=== PATIENT | male | born 1940 | race Two or more races ===

== ENCOUNTER 2018-06-22 01:15 | Inpatient (IN) | payer OTHER, MEDICARE, MEDICAID ==
[~2018-06-22] VITALS: Ht 185.4 cm; Wt 130.2 kg
[2018-06-22 03:35] LABS: CLARITY URINE CLEAR (CLEAR); COLOR URINE YELLOW (YELLOW); KETONES URINE NEGATIVE (NEGATIVE); LEUKOCYTE ESTERASE URINE NEGATIVE (NEGATIVE); NITRITE URINE NEGATIVE (NEGATIVE); OCCULT BLOOD URINE 1+ (NEGATIVE); PROTEIN URINE 3+ (NEGATIVE); SPECIFIC GRAVITY URINE 1.012 (1.005-1.030); UROBILINOGEN URINE 0.2 E.U./dL (0.2-1.0)
[2018-06-22 03:51] LABS: BASOPHILS % 0.4 % (0.0-2.0); EOSINOPHILS % 1.6 % (0.0-5.0); HEMATOCRIT. 36.8 % (42.0-52.0); HEMOGLOBIN. 12.2 g/dL (14.0-18.0); LYMPHOCYTES % 13.6 % (20.0-50.0); MEAN CORPUSCULAR HEMOGLOBIN 29.3 pg (28.0-32.0); MEAN CORPUSCULAR VOLUME 88.6 fL (80.0-94.0); MEAN PLATELET VOLUME 7.2 fl (7.4-10.4); MONOCYTES % 6.1 % (2.0-8.0); NEUTROPHILS % 78.3 % (40.0-76.0); PLATELET 201 x1000/uL (130-400); RED BLOOD CELL COUNT 4.15 mill/uL (4.7-6.1); RED CELL DISTRIBUTION WIDTH 14.5 % (11.6-14.6)
[2018-06-22 03:57] LABS: PROTHROMBIN TIME 10.5 sec (9.1-11.1)
[2018-06-22 04:02] LABS: CHLORIDE 116 mEq/L (98-107)
[2018-06-22] MEDS ORDERED: ACETAMINOPHEN 325MG TABLET PO PRN ×2 (05:00→16:00)
[2018-06-22] MEDS ORDERED: CLONIDINE 0.1MG TABLET PO NR (12:23)
[2018-06-22] MEDS ORDERED: LOSARTAN POTASSIUM 100 MG TABLET PO SCH (12:30)
[2018-06-22] MEDS: CLONIDINE 0.1MG TABLET PO SCH ×2 (14:00→22:58)
[2018-06-22 14:30] VITALS: BP 210/128
[2018-06-22] MEDS: VERAPAMIL HCL 120MG TABLET PO SCH ×2 (15:09→22:13)
[2018-06-22] MEDS ORDERED: LACTULOSE 20G/30ML UDC PO PRN (16:00)
[2018-06-22] MEDS ORDERED: LORAZEPAM 1MG TABLET PO PRN (16:00)
[2018-06-22] MEDS ORDERED: TRAMADOL 50MG TABLET PO PRN (16:19)
[2018-06-22 17:53] VITALS: BP 170/86
[2018-06-22 20:00] VITALS: BP 129/70
[2018-06-22] MEDS: CALCIUM ACETATE 667MG CAPSULE PO SCH (20:56)
[2018-06-22 22:12] VITALS: BP 139/71
[2018-06-23] VITALS (16 sets, daily range): BP systolic 120–176; BP diastolic 69–97
[2018-06-23] MEDS: CLONIDINE 0.1MG TABLET PO SCH ×3 (05:51→23:47)
[2018-06-23] MEDS: VERAPAMIL HCL 120MG TABLET PO SCH ×3 (05:52→23:47)
[2018-06-23 07:11] LABS: BASOPHILS % 0.3 % (0.0-2.0); EOSINOPHILS % 2.2 % (0.0-5.0); HEMATOCRIT. 33.3 % (42.0-52.0); LYMPHOCYTES % 14.4 % (20.0-50.0); MEAN CORPUSCULAR HEMOGLOBIN 29.4 pg (28.0-32.0); MEAN CORPUSCULAR VOLUME 88.9 fL (80.0-94.0); MEAN PLATELET VOLUME 7.3 fl (7.4-10.4); MONOCYTES % 7.5 % (2.0-8.0); NEUTROPHILS % 75.6 % (40.0-76.0); PLATELET 166 x1000/uL (130-400); RED BLOOD CELL COUNT 3.75 mill/uL (4.7-6.1); RED CELL DISTRIBUTION WIDTH 14.1 % (11.6-14.6)
[2018-06-23] MEDS ORDERED: CEFAZOLIN 1000MG PREMIX 50 ML IV ONE ×2 (07:15→07:23)
[2018-06-23] MEDS ORDERED: LIDOCAINE HCL 1% 20ML VIAL (Pyxis) INJ ONE (07:24)
[2018-06-23] MEDS ORDERED: SODIUM BICARBONATE 4% (2.4MEQ) 5ML VIAL IV ONE (07:24)
[2018-06-23 07:55] LABS: HEPATITIS B SURFACE AB 277.5 mIU/mL
[2018-06-23 08:06] LABS: HEPATITIS B SURFACE ANTIGEN NEGATIVE
[2018-06-23] MEDS: CALCIUM ACETATE 667MG CAPSULE PO SCH ×3 (08:10→18:13)
[2018-06-23] MEDS: CALCITRIOL 0.25MCG CAPSULE PO SCH (09:00)
[2018-06-23] MEDS: DOCUSATE SODIUM 100MG CAPSULE PO SCH (09:00)
[2018-06-23] MEDS: FOLIC ACID/VITAMIN B COMP W-C TABLET PO SCH (09:00)
[2018-06-23 09:27] LABS: PHOSPHORUS 3.7 mg/dL (2.5-4.9)
[2018-06-23] MEDS ORDERED: FENTANYL CITRATE/PF 50MCG/ML 2ML VIAL ONE (10:12)
[2018-06-23] MEDS ORDERED: FENTANYL CITRATE/PF 50MCG/ML 2ML VIAL IV ONE (10:45)
[2018-06-23] MEDS ORDERED: MANNITOL 12.5G (25%) VIAL 50ML IV NR (12:00)
[2018-06-24] VITALS (7 sets, daily range): BP systolic 149–167; BP diastolic 80–95
[2018-06-24] MEDS: VERAPAMIL HCL 120MG TABLET PO SCH ×2 (05:37→13:58)
[2018-06-24] MEDS: CLONIDINE 0.1MG TABLET PO SCH ×3 (05:37→19:51)
[2018-06-24] MEDS ORDERED: FURO40TA5 PO (06:15)
[2018-06-24] MEDS ORDERED: METO-411 PO (06:15)
[2018-06-24] MEDS ORDERED: TERA1CAP7 PO (06:15)
[2018-06-24] MEDS ORDERED: FOLI-43 PO (06:15)
[2018-06-24] MEDS ORDERED: AMLO10TA80 PO (06:15)
[2018-06-24] MEDS ORDERED: ALLO100T PO (06:15)
[2018-06-24] MEDS ORDERED: TAMS0.4C31 PO (06:15)
[2018-06-24] MEDS ORDERED: LOSA100T14 PO (06:15)
[2018-06-24] MEDS: MANNITOL 12.5G (25%) VIAL 50ML IV NR ×2 (07:00→11:37)
[2018-06-24 07:31] LABS: BASOPHILS % 0.2 % (0.0-2.0); HEMATOCRIT. 34.1 % (42.0-52.0); HEMOGLOBIN. 11.4 g/dL (14.0-18.0); LYMPHOCYTES % 11.7 % (20.0-50.0); MEAN CORPUSCULAR HEMOGLOBIN 29.6 pg (28.0-32.0); MEAN CORPUSCULAR VOLUME 88.5 fL (80.0-94.0); MEAN PLATELET VOLUME 7.1 fl (7.4-10.4); MONOCYTES % 7.1 % (2.0-8.0); PLATELET 171 x1000/uL (130-400); RED BLOOD CELL COUNT 3.86 mill/uL (4.7-6.1)
[2018-06-24] MEDS: CALCIUM ACETATE 667MG CAPSULE PO SCH ×3 (08:16→18:27)
[2018-06-24] MEDS: FOLIC ACID/VITAMIN B COMP W-C TABLET PO SCH (09:12)
[2018-06-24] MEDS: DOCUSATE SODIUM 100MG CAPSULE PO SCH (09:12)
[2018-06-24] MEDS: CALCITRIOL 0.25MCG CAPSULE PO SCH (09:12)
[2018-06-24] MEDS ORDERED: HEPARIN SODIUM 1,000 UNIT/1ML VIAL IV NR (11:45)
== END 2018-06-24 21:26 | disposition home or self-care (01) | DRG 673 ==
LOC: ER 01:15 → 7WST 04:59 → ENRESERV 10:17
PROVIDERS: ADMIT Internal Medicine; ATTEND Internal Medicine
PROC: B5181ZA Fluoroscopy of Superior Vena Cava using Low Osmolar Contrast, Guidance (ICD-10-PCS; principal; 2018-06-23)
PROC: 02HV33Z Insertion of Infusion Device into Superior Vena Cava, Percutaneous Approach (ICD-10-PCS; 2018-06-23)
PROC: B548ZZA Ultrasonography of Superior Vena Cava, Guidance (ICD-10-PCS; 2018-06-23)
PROC: 5A1D70Z Performance of Urinary Filtration, Intermittent, Less than 6 Hours Per Day (ICD-10-PCS; 2018-06-23)
PROC: 0JH63XZ Insertion of Tunneled Vascular Access Device into Chest Subcutaneous Tissue and Fascia, Percutaneous Approach (ICD-10-PCS; 2018-06-23)
DX: I12.0 Hypertensive chronic kidney disease with stage 5 chronic kidney disease or end stage renal disease (principal); N18.6 End stage renal disease; E87.2 Acidosis; N17.9 Acute kidney failure, unspecified; E46 Unspecified protein-calorie malnutrition; D64.9 Anemia, unspecified; E78.00 Pure hypercholesterolemia, unspecified; E66.01 Morbid (severe) obesity due to excess calories; L29.9 Pruritus, unspecified; N40.0 Benign prostatic hyperplasia without lower urinary tract symptoms; M17.0 Bilateral primary osteoarthritis of knee; N13.9 Obstructive and reflux uropathy, unspecified; Z96.659 Presence of unspecified artificial knee joint; Z68.37 Body mass index [BMI] 37.0-37.9, adult; Z79.899 Other long term (current) drug therapy
CPT/HCPCS: 36415; 36558; 71045; 76770; 76937; 77001; 80048; 82306; 83735; 83970; 84100; 84484; 86705; 86706; 86803; 87340; 87804; 93005; 99152; 99153; 99285; C1750; C1769; J0690; J1642; J1644; J2150; J3010; J3490; J7050; G0500

== ENCOUNTER 2020-09-25 16:00 | Inpatient (IN) | payer MEDICARE, MEDICAID ==
[~2020-09-25] VITALS: Ht 185.4 cm; Wt 119.3 kg
[~2020-09-25 16:00] MED LIST: ALLO100T PO; AMLO10TA80 PO; FOLI-43 PO; FURO40TA5 PO; LOSA100T32 PO; METO-411 PO; TAMS0.4C31 PO
[2020-09-25] MEDS ORDERED: SODIUM CHLORIDE 0.9% 1,000 ML IV ONE (16:45)
[2020-09-25 17:06] LABS: BASOPHILS % 0.3 % (0.0-2.0); EOSINOPHILS % 1.4 % (0.0-5.0); HEMOGLOBIN. 11.5 g/dL (14.0-18.0); LYMPHOCYTES % 14.2 % (20.0-50.0); MEAN CORPUSCULAR HEMOGLOBIN 30.7 pg (28.0-32.0); MEAN CORPUSCULAR VOLUME 90.4 fL (80.0-94.0); MEAN PLATELET VOLUME 6.6 fl (7.4-10.4); MONOCYTES % 7.6 % (2.0-8.0); NEUTROPHILS % 76.5 % (40.0-76.0); PLATELET 190 x1000/uL (130-400); RED BLOOD CELL COUNT 3.75 mill/uL (4.7-6.1); RED CELL DISTRIBUTION WIDTH 13.4 % (11.6-14.6)
[2020-09-25 17:11] LABS: CHLORIDE 104 mEq/L (98-107)
[2020-09-25 17:15] LABS: INR 1.1; PROTHROMBIN TIME 11.3 sec (9.6-11.0)
[2020-09-25] MEDS ORDERED: ASPIRIN 325MG EC TABLET PO ONE (18:15)
[2020-09-25 22:15] VITALS: BP 128/81
[2020-09-26] VITALS: BP 112/77
[2020-09-26] MEDS ORDERED: HYDROCODONE/ACETAMINOPHEN 5/325MG TABLET PO PRN (01:15)
[2020-09-26] MEDS ORDERED: ACETAMINOPHEN 325MG TABLET PO PRN (01:15)
[2020-09-26] MEDS ORDERED: TEMAZEPAM 15MG CAPSULE PO PRN (02:30)
[2020-09-26 04:00] VITALS: BP 96/69
[2020-09-26 07:03] LABS: BASOPHILS % 0.2 % (0.0-2.0); EOSINOPHILS % 1.6 % (0.0-5.0); HEMATOCRIT. 32.9 % (42.0-52.0); HEMOGLOBIN. 11.1 g/dL (14.0-18.0); MEAN CORPUSCULAR HEMOGLOBIN 30.6 pg (28.0-32.0); MEAN CORPUSCULAR VOLUME 90.9 fL (80.0-94.0); MEAN PLATELET VOLUME 7.1 fl (7.4-10.4); MONOCYTES % 7.4 % (2.0-8.0); NEUTROPHILS % 70.8 % (40.0-76.0); PLATELET 173 x1000/uL (130-400); RED BLOOD CELL COUNT 3.62 mill/uL (4.7-6.1); RED CELL DISTRIBUTION WIDTH 13.4 % (11.6-14.6)
[2020-09-26 08:00] VITALS: BP 103/68
[2020-09-26] MEDS: ALLOPURINOL 100 MG TABLET PO SCH (08:33)
[2020-09-26] MEDS: FOLIC ACID 1MG TABLET PO SCH (08:33)
[2020-09-26] MEDS: FUROSEMIDE 40MG TABLET PO SCH (08:33)
[2020-09-26] MEDS: ENOXAPARIN 40MG/0.4ML SYR SUBCUT SCH (08:34)
[2020-09-26] MEDS: METOPROLOL TARTRATE 100MG TABLET PO SCH ×2 (08:34→21:47)
[2020-09-26] MEDS: LOSARTAN POTASSIUM 100 MG TABLET PO SCH (08:35)
[2020-09-26] MEDS: AMLODIPINE 10MG TABLET PO SCH (08:35)
[2020-09-26] MEDS ORDERED: MEDICATION NOT ON FORMULARY EA (Metoprolol Succinate 100 MG) PO SCH (09:00)
[2020-09-26] MEDS ORDERED: DEXTROSE 50% WATER 50ML SYRINGE IV PRN (10:15)
[2020-09-26] MEDS ORDERED: IPRATROPIUM/ALBUTEROL 0.5-3(2.5)MG/3ML NEB HHN PRN (10:15)
[2020-09-26] MEDS ORDERED: LORAZEPAM 2MG/ML CPJ IV PRN (10:15)
[2020-09-26] MEDS ORDERED: ONDANSETRON HCL 4MG/2ML INJ IV PRN (10:15)
[2020-09-26] MEDS ORDERED: BISACODYL 10MG SUPP PR PRN (10:15)
[2020-09-26] MEDS: BLOOD SUGAR DIAGNOSTIC STRIP TEST SCH ×3 (11:45→21:38)
[2020-09-26 12:00] VITALS: BP 99/69
[2020-09-26] MEDS: INSULIN LISPRO 100 UNITS/ML SUBCUT SCH ×3 (12:15→21:00)
[2020-09-26 16:00] VITALS: BP 98/62
[2020-09-26] MEDS ORDERED: HYDRALAZINE 20MG/ML VIAL IV PRN (16:45)
[2020-09-26] MEDS ORDERED: DIPHENHYDRAMINE 50MG/ML VIAL IV PRN (16:45)
[2020-09-26] MEDS: ASPIRIN 81MG TABLET PO SCH (17:28)
[2020-09-26 17:38] LABS: BG BASE EXCESS -3.8 mmol/L (-2.0-2.0); BG CARBOXYHEMOGLOBIN 0.4 % (0.5-1.5); BG FRACTION INSPIRED OXYGEN 21; BG HCO3 ACT 19.5 mmol/L (22.0-26.0); BG METHEMOGLOBIN 0.1 % (0.0-1.5); BG OXYHEMOGLOBIN 94.5 % (94.0-97.0); BG PCO2 30.2 mmHg (35.0-45.0); BG PH 7.427 (7.350-7.450); BG PO2 73.8 mmHg (75.0-100.0); BG SAMPLE SITE LEFT RADIAL; BG TOTAL HEMOGLOBIN 12.6 g/dL (12.0-18.0); BG VENT MODE ROOM AIR
[2020-09-26 19:14] LABS: TOTAL IRON BINDING CAPACITY 193 ug/dL (250-450)
[2020-09-26 19:39] LABS: PROSTRATE SPECIFIC AG TOTAL 24.76 ng/mL (0.0-4.0)
[2020-09-26 20:00] VITALS: BP 113/69
[2020-09-26 20:43] LABS: *AMPHETAMINES SCREEN URINE NEGATIVE (NEGATIVE); *BARBITURATES SCREEN URINE NEGATIVE (NEGATIVE); *BENZODIAZEPINES SCREEN URINE NEGATIVE (NEGATIVE); *COCAINE SCREEN URINE NEGATIVE (NEGATIVE)
[2020-09-26 20:44] LABS: CANNABINOID URINE SCREEN NEGATIVE (NEGATIVE); METHADONE URINE SCREEN NEGATIVE (NEGATIVE); OPIATES URINE SCREEN NEGATIVE (NEGATIVE); PHENCYCLIDINE URINE SCREEN NEGATIVE (NEGATIVE)
[2020-09-26] MEDS ORDERED: ATORVASTATIN CALCIUM 10MG TABLET PO SCH (21:00)
[2020-09-26] MEDS ORDERED: TAMSULOSIN HCL 0.4MG SR CAPSULE PO SCH (21:00)
[2020-09-26] MEDS ORDERED: FAMOTIDINE 20MG TABLET PO SCH (21:00)
[2020-09-27] VITALS: BP_SYST 90; BP_SYST 95; BP_DIAS 50; BP_DIAS 55
[2020-09-27 04:00] VITALS: BP 107/58
[2020-09-27 06:08] LABS: BASOPHILS % 0.5 % (0.0-2.0); EOSINOPHILS % 2.2 % (0.0-5.0); HEMATOCRIT. 32.9 % (42.0-52.0); HEMOGLOBIN. 10.9 g/dL (14.0-18.0); LYMPHOCYTES % 16.2 % (20.0-50.0); MEAN CORPUSCULAR HEMOGLOBIN 30.4 pg (28.0-32.0); MEAN CORPUSCULAR VOLUME 91.4 fL (80.0-94.0); MEAN PLATELET VOLUME 7.2 fl (7.4-10.4); MONOCYTES % 7.9 % (2.0-8.0); NEUTROPHILS % 73.2 % (40.0-76.0); PLATELET 173 x1000/uL (130-400); RED CELL DISTRIBUTION WIDTH 13.6 % (11.6-14.6)
[2020-09-27] MEDS: INSULIN LISPRO 100 UNITS/ML SUBCUT SCH ×2 (06:25→12:15)
[2020-09-27] MEDS: BLOOD SUGAR DIAGNOSTIC STRIP TEST SCH ×2 (06:25→12:21)
[2020-09-27 08:00] VITALS: BP_SYST 112; BP_SYST 119; BP_SYST 96; BP_DIAS 68; BP_DIAS 70; BP_DIAS 74
[2020-09-27] MEDS: FOLIC ACID 1MG TABLET PO SCH (10:08)
[2020-09-27] MEDS: ASPIRIN 81MG TABLET PO SCH (10:08)
[2020-09-27] MEDS: ALLOPURINOL 100 MG TABLET PO SCH (10:08)
[2020-09-27] MEDS: LOSARTAN POTASSIUM 100 MG TABLET PO SCH (10:08)
[2020-09-27] MEDS: ENOXAPARIN 40MG/0.4ML SYR SUBCUT SCH (10:08)
[2020-09-27] MEDS: METOPROLOL TARTRATE 100MG TABLET PO SCH (10:09)
[2020-09-27] MEDS: FUROSEMIDE 40MG TABLET PO SCH (10:09)
[2020-09-27] MEDS: AMLODIPINE 10MG TABLET PO SCH (10:09)
[2020-09-27] MEDS ORDERED: MECLIZINE 25MG TABLET PO PRN (11:00)
[2020-09-27 12:00] VITALS: BP 97/58
[2020-09-27] MEDS ORDERED: MECL-159 MT (12:20)
[2020-09-27] MEDS ORDERED: ATOR10TA MT (12:21)
[2020-09-27] MEDS ORDERED: ASPI-1497 MT (12:21)
[2020-09-27 12:40] VITALS: BP 99/60
== END 2020-09-27 13:23 | disposition home or self-care (01) | DRG 312 ==
LOC: ER 16:00 → 5WST 19:50 → ENRESERV 21:10
PROVIDERS: ADMIT Internal Medicine; ATTEND Internal Medicine
DX: I95.1 Orthostatic hypotension (principal); N18.6 End stage renal disease; J98.11 Atelectasis; I12.0 Hypertensive chronic kidney disease with stage 5 chronic kidney disease or end stage renal disease; Z99.2 Dependence on renal dialysis; G93.0 Cerebral cysts; E11.22 Type 2 diabetes mellitus with diabetic chronic kidney disease; G90.8 Other disorders of autonomic nervous system; M10.9 Gout, unspecified; M19.90 Unspecified osteoarthritis, unspecified site; I44.7 Left bundle-branch block, unspecified; G89.4 Chronic pain syndrome; E78.5 Hyperlipidemia, unspecified; D64.9 Anemia, unspecified; E66.01 Morbid (severe) obesity due to excess calories; E78.00 Pure hypercholesterolemia, unspecified; F32.9 Major depressive disorder, single episode, unspecified; G93.89 Other specified disorders of brain; N40.0 Benign prostatic hyperplasia without lower urinary tract symptoms; Z20.822 Contact with and (suspected) exposure to COVID-19; Z79.899 Other long term (current) drug therapy; Z68.34 Body mass index [BMI] 34.0-34.9, adult
CPT/HCPCS: 36415; 36600; 70551; 71045; 80048; 80053; 80061; 80305; 82140; 82375; 82607; 82728; 82805; 82962; 83036; 83540; 83550; 83880; 84153; 84484; 85025; 87426; 93005; 93306; 93880; 93970; 97161; 99285; J1650; J7030; G0103

== ENCOUNTER 2020-12-23 18:18 | Inpatient (IN) | payer MEDICARE, MEDICAID ==
[~2020-12-23] VITALS: Ht 185.4 cm; Wt 116.1 kg
[~2020-12-23 18:18] MED LIST changes: +ASPI-1497 MT; +ATOR10TA MT; -LOSA100T32 PO; +MECL-159 MT; -METO-411 PO
[2020-12-23] MEDS ORDERED: LEVETIRACETAM 1000MG PREMIX 100 ML IV ONE (18:30)
[2020-12-23] MEDS ORDERED: LORAZEPAM 2MG/ML CPJ IV ONE (18:30)
[2020-12-23 18:40] LABS: BASOPHILS % 0.1 % (0.0-2.0); EOSINOPHILS % 0.5 % (0.0-5.0); HEMOGLOBIN. 12.4 g/dL (14.0-18.0); LYMPHOCYTES % 20.5 % (20.0-50.0); MEAN CORPUSCULAR HEMOGLOBIN 31.2 pg (28.0-32.0); MEAN CORPUSCULAR VOLUME 95.5 fL (80.0-94.0); MEAN PLATELET VOLUME 6.8 fl (7.4-10.4); NEUTROPHILS % 72.9 % (40.0-76.0); PLATELET 198 x1000/uL (130-400); RED BLOOD CELL COUNT 3.98 mill/uL (4.7-6.1)
[2020-12-23 18:46] LABS: CHLORIDE 105 mEq/L (98-107)
[2020-12-23 18:50] LABS: ETHANOL BLOOD < 10 mg/dL
[2020-12-23] MEDS ORDERED: PHENYTOIN SODIUM 100MG/2ML VIAL IV ONE (19:45)
[2020-12-23] MEDS ORDERED: DEXAMETHASONE 10 MG/ML VIAL IV ONE (20:00)
[2020-12-23] MEDS ORDERED: PHENYTOIN SODIUM 1,500 MG in SODIUM CHLORIDE 0.9% 100 ML IV NR (20:32)
[2020-12-23] MEDS ORDERED: SODIUM CHLORIDE 0.9% 500 ML IV ONE (21:45)
[2020-12-24] VITALS (7 sets, daily range): BP systolic 135–156; BP diastolic 69–101
[2020-12-24 01:52] LABS: CLARITY URINE CLEAR (CLEAR); COLOR URINE YELLOW (YELLOW); KETONES URINE NEGATIVE (NEGATIVE); LEUKOCYTE ESTERASE URINE NEGATIVE (NEGATIVE); NITRITE URINE NEGATIVE (NEGATIVE); OCCULT BLOOD URINE 1+ (NEGATIVE); PROTEIN URINE 2+ (NEGATIVE); UROBILINOGEN URINE 0.2 E.U./dL (0.2-1.0)
[2020-12-24 02:13] LABS: *AMPHETAMINES SCREEN URINE NEGATIVE (NEGATIVE); *BARBITURATES SCREEN URINE NEGATIVE (NEGATIVE); *BENZODIAZEPINES SCREEN URINE NEGATIVE (NEGATIVE); *COCAINE SCREEN URINE NEGATIVE (NEGATIVE); METHADONE URINE SCREEN NEGATIVE (NEGATIVE); OPIATES URINE SCREEN NEGATIVE (NEGATIVE); PHENCYCLIDINE URINE SCREEN NEGATIVE (NEGATIVE)
[2020-12-24 02:14] LABS: CANNABINOID URINE SCREEN NEGATIVE (NEGATIVE)
[2020-12-24] MEDS ORDERED: CEFTRIAXONE 1 G PREMIX 50 ML IV SCH (04:00)
[2020-12-24] MEDS: HYDRALAZINE 20MG/ML VIAL IV PRN (05:11)
[2020-12-24] MEDS ORDERED: IPRATROPIUM/ALBUTEROL 0.5-3(2.5)MG/3ML NEB HHN PRN (13:30)
[2020-12-24] MEDS ORDERED: HYDROCODONE/ACETAMINOPHEN 5/325MG TABLET PO PRN (13:30)
[2020-12-24] MEDS ORDERED: ONDANSETRON HCL 4MG/2ML INJ IV PRN (13:30)
[2020-12-24] MEDS ORDERED: ACETAMINOPHEN 325MG TABLET PO PRN (13:30)
[2020-12-24] MEDS ORDERED: NALOXONE HCL 0.4MG/ML VIAL IV PRN (13:45)
[2020-12-24 15:02] LABS: CREATINE KINASE MB FRACTION 3.1 ng/mL (0.5-3.6)
[2020-12-24] MEDS: LEVETIRACETAM 500MG PREMIX 100 ML IV SCH (15:12)
[2020-12-24] MEDS: CALCIUM ACETATE 667MG CAPSULE PO SCH (18:40)
[2020-12-24] MEDS: METOPROLOL TARTRATE 50MG TABLET PO SCH (21:38)
[2020-12-25] VITALS (12 sets, daily range): BP systolic 108–198; BP diastolic 48–108
[2020-12-25 01:08] LABS: HEPATITIS B SURFACE ANTIGEN NEGATIVE
[2020-12-25 01:38] LABS: HEPATITIS A AB IGM NEGATIVE (NEGATIVE)
[2020-12-25] MEDS: LEVETIRACETAM 500MG PREMIX 100 ML IV SCH ×3 (01:56→20:35)
[2020-12-25 07:06] LABS: BASOPHILS % 0.2 % (0.0-2.0); EOSINOPHILS % 1.2 % (0.0-5.0); HEMATOCRIT. 34.5 % (42.0-52.0); HEMOGLOBIN. 11.7 g/dL (14.0-18.0); LYMPHOCYTES % 12.4 % (20.0-50.0); MEAN CORPUSCULAR HEMOGLOBIN 31.6 pg (28.0-32.0); MEAN CORPUSCULAR VOLUME 93.5 fL (80.0-94.0); MEAN PLATELET VOLUME 6.8 fl (7.4-10.4); NEUTROPHILS % 78.2 % (40.0-76.0); PLATELET 162 x1000/uL (130-400); RED BLOOD CELL COUNT 3.69 mill/uL (4.7-6.1); RED CELL DISTRIBUTION WIDTH 14.7 % (11.6-14.6)
[2020-12-25 07:10] LABS: CHLORIDE 109 mEq/L (98-107)
[2020-12-25 07:19] LABS: PHOSPHORUS 3.7 mg/dL (2.5-4.9)
[2020-12-25 07:20] LABS: LDL CHOLESTEROL 61 mg/dL (5-100)
[2020-12-25 07:21] LABS: HDL CHOLESTEROL 63 mg/dL (40-59)
[2020-12-25 07:22] LABS: T4 FREE 1.01 ng/dL (0.76-1.46)
[2020-12-25] MEDS ORDERED: LOSARTAN POTASSIUM 50 MG TABLET PO SCH (09:00)
[2020-12-25] MEDS ORDERED: AMLODIPINE 10MG TABLET PO SCH (09:00)
[2020-12-25] MEDS: CALCIUM ACETATE 667MG CAPSULE PO SCH ×2 (10:12→14:53)
[2020-12-25] MEDS: METOPROLOL TARTRATE 50MG TABLET PO SCH ×2 (10:13→20:40)
[2020-12-25] MEDS: DOCUSATE SODIUM 100MG CAPSULE PO SCH ×2 (10:13→16:04)
[2020-12-25] MEDS: HYDRALAZINE 20MG/ML VIAL IV PRN (16:04)
[2020-12-25] MEDS ORDERED: KEPP500 PO (16:31)
[2020-12-26] MEDS ORDERED: LEVETIRACETAM 500MG TABLET PO SCH (09:00)
== END 2020-12-25 22:47 | disposition home or self-care (01) | DRG 100 ==
LOC: ER 18:18 → MICUSO 22:41 → 5EST 12-24 10:28 → MICUSO 12-24 11:10 → 5EST 12-24 11:13
PROVIDERS: ADMIT Internal Medicine; ATTEND Internal Medicine
PROC: 5A1D70Z Performance of Urinary Filtration, Intermittent, Less than 6 Hours Per Day (ICD-10-PCS; 2020-12-24)
PROC: 4A10X4Z Monitoring of Central Nervous Electrical Activity, External Approach (ICD-10-PCS; principal; 2020-12-25)
DX: G40.401 Other generalized epilepsy and epileptic syndromes, not intractable, with status epilepticus (principal); N18.6 End stage renal disease; G93.40 Encephalopathy, unspecified; I13.2 Hypertensive heart and chronic kidney disease with heart failure and with stage 5 chronic kidney disease, or end stage renal disease; I50.32 Chronic diastolic (congestive) heart failure; G89.4 Chronic pain syndrome; D49.6 Neoplasm of unspecified behavior of brain; E66.01 Morbid (severe) obesity due to excess calories; F32.9 Major depressive disorder, single episode, unspecified; M19.90 Unspecified osteoarthritis, unspecified site; N40.0 Benign prostatic hyperplasia without lower urinary tract symptoms; D64.9 Anemia, unspecified; E78.00 Pure hypercholesterolemia, unspecified; E11.22 Type 2 diabetes mellitus with diabetic chronic kidney disease; Z99.2 Dependence on renal dialysis; Z79.82 Long term (current) use of aspirin; Z79.899 Other long term (current) drug therapy; Z68.33 Body mass index [BMI] 33.0-33.9, adult
CPT/HCPCS: 36415; 70551; 71045; 80053; 80061; 80305; 80320; 81003; 82550; 82553; 82962; 83605; 83735; 84100; 84439; 84443; 84484; 85025; 86705; 86709; 86803; 87340; 95816; 99291; J0360; J0696; J1100; J1165; J1953; J2060; J7050; G0480

== ENCOUNTER 2021-03-11 18:00 | Inpatient (IN) | payer MEDICARE, MEDICAID ==
[~2021-03-11] VITALS: Ht 180.3 cm; Wt 103.9 kg
[~2021-03-11 18:00] MED LIST changes: +KEPP500 PO
[2021-03-11 19:09] LABS: MEAN CORPUSCULAR HEMOGLOBIN 30.3 pg (28.0-32.0); MEAN CORPUSCULAR VOLUME 93.6 fL (80.0-94.0); MEAN PLATELET VOLUME 7.2 fl (7.4-10.4); PLATELET 250 x1000/uL (130-400); RED BLOOD CELL COUNT 4.28 mill/uL (4.7-6.1); RED CELL DISTRIBUTION WIDTH 14.5 % (11.6-14.6)
[2021-03-11 19:19] LABS: PARTIAL THROMBOPLASTIN TIME 25.4 sec (23.4-31.0); PROTHROMBIN TIME 10.7 sec (9.6-11.0)
[2021-03-11 19:24] LABS: CHLORIDE 114 mEq/L (98-107)
[2021-03-11 19:28] LABS: ETHANOL BLOOD < 10 mg/dL
[2021-03-11 20:12] LABS: PLATELET ESTIMATE NORMAL
[2021-03-11] MEDS ORDERED: ALBUTEROL (0.083%) 2.5MG/3ML NEB HHN ONE (20:15)
[2021-03-11] MEDS ORDERED: SODIUM BICARBONATE 8.4% 1 MEQ/ML 50ML SYR IV ONE (20:15)
[2021-03-11] MEDS ORDERED: LEVETIRACETAM 500MG PREMIX 100 ML IV ONE (20:15)
[2021-03-12] VITALS (19 sets, daily range): BP systolic 118–182; BP diastolic 68–108
[2021-03-12] MEDS ORDERED: ONDANSETRON HCL 4MG/2ML INJ IV PRN (06:30)
[2021-03-12] MEDS ORDERED: VANCOMYCIN 1 G PREMIX 200 ML IV ONE (06:30)
[2021-03-12 07:27] LABS: BG BASE EXCESS -5.2 mmol/L (-2.0-2.0); BG CARBOXYHEMOGLOBIN 0.4 % (0.5-1.5); BG DEOXYHEMOGLOBIN 5.8 % (0.0-5.0); BG FRACTION INSPIRED OXYGEN 21; BG HCO3 ACT 19.4 mmol/L (22.0-26.0); BG METHEMOGLOBIN 0.2 % (0.0-1.5); BG OXYGEN SATURATION 94.2 % (92.0-98.5); BG OXYHEMOGLOBIN 93.6 % (94.0-97.0); BG PCO2 34.4 mmHg (35.0-45.0); BG PH 7.368 (7.350-7.450); BG PO2 74.5 mmHg (75.0-100.0); BG SAMPLE SITE RIGHT RADIAL; BG TOTAL HEMOGLOBIN 11.7 g/dL (12.0-18.0); BG VENT MODE ROOM AIR
[2021-03-12] MEDS: PANTOPRAZOLE SODIUM 40 MG/VIAL IV SCH (09:00)
[2021-03-12] MEDS: DEXT 5%/0.9% NACL 1,000 ML IV SCH ×2 (09:51→09:57)
[2021-03-12] MEDS: PIPERACILLIN/TAZOBACTAM 3.375 G in DEXTROSE 5% WATER 50 ML IV SCH ×2 (09:52→09:57)
[2021-03-12] MEDS: LEVETIRACETAM 500MG PREMIX 100 ML IV SCH ×3 (09:52→09:58)
[2021-03-12] MEDS: VANCOMYCIN 1,500 MG in DEXT 5% WATER 250 ML IV SCH ×2 (09:55→09:57)
[2021-03-12] MEDS: DEXAMETHASONE 4MG/ML 1ML VIAL IV SCH ×3 (13:25→23:26)
[2021-03-12] MEDS ORDERED: LIDOCAINE HCL 1% 30ML VIAL (10MG/ML) ONE (14:51)
[2021-03-12] MEDS ORDERED: HEPARIN 1000 UNITS/ML 10ML ONE (14:51)
[2021-03-12] MEDS ORDERED: FENTANYL CITRATE/PF 50MCG/ML 2ML VIAL ONE (15:06)
[2021-03-12] MEDS: SODIUM CHLORIDE 0.45% 1,000 ML IV SCH (16:06)
[2021-03-12 16:18] LABS: HEMATOCRIT. 35.5 % (42.0-52.0); HEMOGLOBIN. 11.5 g/dL (14.0-18.0); MEAN CORPUSCULAR HEMOGLOBIN 30.4 pg (28.0-32.0); MEAN CORPUSCULAR VOLUME 93.8 fL (80.0-94.0); MEAN PLATELET VOLUME 7.7 fl (7.4-10.4); PLATELET 184 x1000/uL (130-400); RED BLOOD CELL COUNT 3.78 mill/uL (4.7-6.1); RED CELL DISTRIBUTION WIDTH 14.6 % (11.6-14.6)
[2021-03-12 16:38] LABS: PHOSPHORUS 4.9 mg/dL (2.5-4.9)
[2021-03-12 17:00] LABS: PLATELET ESTIMATE NORMAL
[2021-03-12 17:01] LABS: HEPATITIS B SURFACE ANTIGEN NEGATIVE
[2021-03-12] MEDS ORDERED: VANCOMYCIN 500 MG PREMIX 100 ML IV NR (21:00)
[2021-03-13] VITALS (14 sets, daily range): BP systolic 145–191; BP diastolic 93–121
[2021-03-13 07:13] LABS: HEMATOCRIT. 34.2 % (42.0-52.0); HEMOGLOBIN. 11.4 g/dL (14.0-18.0); MEAN CORPUSCULAR HEMOGLOBIN 30.5 pg (28.0-32.0); MEAN CORPUSCULAR VOLUME 91.4 fL (80.0-94.0); MEAN PLATELET VOLUME 7.6 fl (7.4-10.4); PLATELET 192 x1000/uL (130-400); RED BLOOD CELL COUNT 3.74 mill/uL (4.7-6.1); RED CELL DISTRIBUTION WIDTH 14.3 % (11.6-14.6)
[2021-03-13] MEDS: DEXAMETHASONE 4MG/ML 1ML VIAL IV SCH ×2 (08:44→14:07)
[2021-03-13] MEDS: PANTOPRAZOLE SODIUM 40 MG/VIAL IV SCH (08:44)
[2021-03-13] MEDS: LEVETIRACETAM 500MG PREMIX 100 ML IV SCH (08:44)
[2021-03-13] MEDS: SODIUM CHLORIDE 0.45% 1,000 ML IV SCH (08:45)
[2021-03-13] MEDS ORDERED: HYDRALAZINE 20MG/ML VIAL IV PRN (10:00)
[2021-03-13 12:37] LABS: PLATELET ESTIMATE NORMAL
[2021-03-13] MEDS ORDERED: HYDRALAZINE HCL 100MG TABLET PO NR (16:15)
[2021-03-13] MEDS ORDERED: DEXAMETHASONE 4MG/ML 1ML VIAL IV SCH (17:00)
[2021-03-13] MEDS ORDERED: VANCOMYCIN 750 MG PREMIX 150 ML IV NR (18:00)
[2021-03-13] MEDS: NIFEDIPINE XL 30MG TAB PO SCH (18:01)
[2021-03-13] MEDS: HYDRALAZINE HCL 100MG TABLET PO SCH (22:00)
[2021-03-14] VITALS (9 sets, daily range): BP systolic 116–133; BP diastolic 81–93
[2021-03-14] MEDS: SODIUM CHLORIDE 0.45% 1,000 ML IV SCH ×2 (02:00→21:31)
[2021-03-14] MEDS: HYDRALAZINE HCL 100MG TABLET PO SCH ×3 (05:14→21:31)
[2021-03-14] MEDS: PANTOPRAZOLE SODIUM 40 MG/VIAL IV SCH (08:19)
[2021-03-14] MEDS: NIFEDIPINE XL 30MG TAB PO SCH (08:20)
[2021-03-14] MEDS: LEVETIRACETAM 500MG PREMIX 100 ML IV SCH (08:20)
[2021-03-14 08:51] LABS: HEMATOCRIT. 37.1 % (42.0-52.0); HEMOGLOBIN. 12.3 g/dL (14.0-18.0); MEAN CORPUSCULAR HEMOGLOBIN 30.9 pg (28.0-32.0); MEAN CORPUSCULAR VOLUME 92.7 fL (80.0-94.0); RED CELL DISTRIBUTION WIDTH 14.1 % (11.6-14.6)
[2021-03-14] MEDS: ENOXAPARIN 30MG/0.3ML SYR SUBCUT SCH (09:00)
[2021-03-14 11:35] LABS: PLATELET 210 x1000/uL (130-400)
[2021-03-14 11:37] LABS: PLATELET ESTIMATE NORMAL
[2021-03-15] VITALS (8 sets, daily range): BP systolic 114–137; BP diastolic 81–92
[2021-03-15] MEDS: HYDRALAZINE HCL 100MG TABLET PO SCH ×2 (05:31→14:00)
[2021-03-15] MEDS: LEVETIRACETAM 500MG PREMIX 100 ML IV SCH (08:55)
[2021-03-15] MEDS: PANTOPRAZOLE SODIUM 40 MG/VIAL IV SCH (08:57)
[2021-03-15] MEDS: NIFEDIPINE XL 30MG TAB PO SCH (08:57)
[2021-03-15] MEDS: ENOXAPARIN 30MG/0.3ML SYR SUBCUT SCH (08:58)
[2021-03-15] MEDS ORDERED: MORPHINE SULFATE 2 MG/ML CPJ (NOT FOR IM USE) IV PRN (13:00)
[2021-03-15] MEDS ORDERED: ACETAMINOPHEN 325MG TABLET PO PRN (13:00)
[2021-03-15] MEDS ORDERED: LORAZEPAM 2MG/ML CPJ IV PRN (13:00)
[2021-03-15] MEDS ORDERED: LACTULOSE 20G/30ML UDC PO PRN (13:00)
[2021-03-15] MEDS ORDERED: ACETAMINOPHEN 650MG SUPP PR PRN (13:00)
[2021-03-15] MEDS ORDERED: IPRATROPIUM/ALBUTEROL 0.5-3(2.5)MG/3ML NEB HHN PRN (13:00)
[2021-03-15] MEDS ORDERED: BISACODYL 10MG SUPP PR PRN (13:00)
[2021-03-15] MEDS ORDERED: CEFTRIAXONE 1,000 MG in DEXTROSE 5% WATER 50 ML IV SCH (15:00)
[2021-03-15] MEDS: ENOXAPARIN 40MG/0.4ML SYR SUBCUT SCH (17:00)
[2021-03-15] MEDS ORDERED: NALOXONE HCL 0.4MG/ML VIAL IV PRN (17:15)
[2021-03-15] MEDS: SODIUM CHLORIDE 0.45% 1,000 ML IV SCH (18:00)
[2021-03-16] VITALS: BP 109/79
[2021-03-16 04:00] VITALS: BP 121/84
[2021-03-16] MEDS: HYDRALAZINE HCL 100MG TABLET PO SCH ×3 (06:00→22:00)
[2021-03-16 08:00] VITALS: BP 114/87
[2021-03-16] MEDS: NIFEDIPINE XL 30MG TAB PO SCH (09:20)
[2021-03-16] MEDS: PANTOPRAZOLE SODIUM 40 MG/VIAL IV SCH (09:20)
[2021-03-16] MEDS ORDERED: LEVOFLOXACIN 250MG TABLET PO SCH (11:00)
[2021-03-16] MEDS: LEVETIRACETAM 500MG TABLET PO SCH (12:47)
[2021-03-16] MEDS: PANTOPRAZOLE 40MG DR TABLET PO SCH (12:47)
[2021-03-16 16:00] VITALS: BP 142/66
[2021-03-16] MEDS: ENOXAPARIN 40MG/0.4ML SYR SUBCUT SCH (16:44)
[2021-03-16 20:00] VITALS: BP 126/72
[2021-03-17] VITALS: BP 118/70
[2021-03-17 04:00] VITALS: BP 130/66
[2021-03-17] MEDS: HYDRALAZINE HCL 100MG TABLET PO SCH ×3 (06:00→21:36)
[2021-03-17] MEDS: PANTOPRAZOLE 40MG DR TABLET PO SCH (06:34)
[2021-03-17] MEDS: NIFEDIPINE XL 30MG TAB PO SCH (09:00)
[2021-03-17] MEDS: LEVETIRACETAM 500MG TABLET PO SCH (10:00)
[2021-03-17 12:00] VITALS: BP 135/67
[2021-03-17] MEDS: ENOXAPARIN 40MG/0.4ML SYR SUBCUT SCH (17:00)
[2021-03-17 20:00] VITALS: BP 119/76
[2021-03-18] VITALS (37 sets, daily range): BP systolic 102–145; BP diastolic 59–114
[2021-03-18] MEDS: HYDRALAZINE HCL 100MG TABLET PO SCH ×3 (05:59→22:50)
[2021-03-18] MEDS: FAMOTIDINE 20MG TABLET PO SCH (09:00)
[2021-03-18] MEDS: NIFEDIPINE XL 30MG TAB PO SCH (09:00)
[2021-03-18] MEDS ORDERED: LEVETIRACETAM 500MG TABLET PO SCH (09:00)
[2021-03-18] MEDS ORDERED: LIDOCAINE HCL/PF 1% 2ML VIAL ONE (10:52)
[2021-03-18] MEDS ORDERED: LEVETIRACETAM 500 MG in SODIUM CHLORIDE 0.9% 100 ML IV SCH (11:15)
[2021-03-18 11:24] LABS: BG BASE EXCESS -0.9 mmol/L (-2.0-2.0); BG CARBOXYHEMOGLOBIN 0.3 % (0.5-1.5); BG DEOXYHEMOGLOBIN 2.6 % (0.0-5.0); BG HCO3 ACT 22.8 mmol/L (22.0-26.0); BG METHEMOGLOBIN 0.2 % (0.0-1.5); BG OXYGEN SATURATION 97.4 % (92.0-98.5); BG OXYHEMOGLOBIN 96.9 % (94.0-97.0); BG PCO2 34.7 mmHg (35.0-45.0); BG PH 7.435 (7.350-7.450); BG PO2 105.5 mmHg (75.0-100.0); BG SAMPLE SITE RIGHT RADIAL; BG TOTAL HEMOGLOBIN 12.5 g/dL (12.0-18.0); BG VENT MODE NASAL CANNULA
[2021-03-18 12:00] LABS: HEMATOCRIT. 33.4 % (42.0-52.0); HEMOGLOBIN. 11.3 g/dL (14.0-18.0); MEAN CORPUSCULAR VOLUME 91.6 fL (80.0-94.0); MEAN PLATELET VOLUME 8.4 fl (7.4-10.4); RED BLOOD CELL COUNT 3.65 mill/uL (4.7-6.1); RED CELL DISTRIBUTION WIDTH 14.3 % (11.6-14.6)
[2021-03-18 12:09] LABS: CHLORIDE 110 mEq/L (98-107)
[2021-03-18 12:19] LABS: CREATINE KINASE 110 IU/L (39-308); CREATINE KINASE MB FRACTION 1.4 ng/mL (0.5-3.6)
[2021-03-18 12:42] LABS: PLATELET ESTIMATE NORMAL
[2021-03-18 12:43] LABS: PLATELET 188 x1000/uL (130-400)
[2021-03-18] MEDS: LEVETIRACETAM 500MG PREMIX 100 ML IV SCH ×2 (14:03→21:27)
[2021-03-18] MEDS: PIPERACILLIN/TAZOBACTAM 3.375 G in DEXTROSE 5% WATER 50 ML IV SCH ×2 (14:04→21:26)
[2021-03-18] MEDS: ENOXAPARIN 40MG/0.4ML SYR SUBCUT SCH (18:00)
[2021-03-19] VITALS (76 sets, daily range): BP systolic 85–146; BP diastolic 44–115
[2021-03-19] MEDS: HYDRALAZINE HCL 100MG TABLET PO SCH ×3 (05:44→22:41)
[2021-03-19 05:51] LABS: HEMATOCRIT. 30.3 % (42.0-52.0); HEMOGLOBIN. 10.4 g/dL (14.0-18.0); MEAN CORPUSCULAR HEMOGLOBIN 31.2 pg (28.0-32.0); MEAN CORPUSCULAR VOLUME 90.9 fL (80.0-94.0); MEAN PLATELET VOLUME 7.6 fl (7.4-10.4); PLATELET 187 x1000/uL (130-400); RED BLOOD CELL COUNT 3.33 mill/uL (4.7-6.1); RED CELL DISTRIBUTION WIDTH 14.1 % (11.6-14.6)
[2021-03-19] MEDS: PIPERACILLIN/TAZOBACTAM 3.375 G in DEXTROSE 5% WATER 50 ML IV SCH ×2 (09:00→21:19)
[2021-03-19] MEDS: NIFEDIPINE XL 30MG TAB PO SCH (09:00)
[2021-03-19] MEDS: FAMOTIDINE 20MG TABLET PO SCH (09:00)
[2021-03-19] MEDS: LEVETIRACETAM 500MG PREMIX 100 ML IV SCH ×2 (10:09→21:19)
[2021-03-19 13:18] LABS: PLATELET ESTIMATE NORMAL
[2021-03-19] MEDS: ENOXAPARIN 40MG/0.4ML SYR SUBCUT SCH (17:00)
[2021-03-20] VITALS (33 sets, daily range): BP systolic 46–153; BP diastolic 32–95
[2021-03-20] MEDS: HYDRALAZINE HCL 100MG TABLET PO SCH ×3 (06:00→20:46)
[2021-03-20 06:08] LABS: HEMOGLOBIN. 10.6 g/dL (14.0-18.0); MEAN PLATELET VOLUME 7.6 fl (7.4-10.4); PLATELET 185 x1000/uL (130-400); RED CELL DISTRIBUTION WIDTH 14.1 % (11.6-14.6)
[2021-03-20] MEDS: FAMOTIDINE 20MG TABLET PO SCH (09:00)
[2021-03-20] MEDS: NIFEDIPINE XL 30MG TAB PO SCH (09:00)
[2021-03-20 10:04] LABS: PLATELET ESTIMATE NORMAL
[2021-03-20] MEDS: PIPERACILLIN/TAZOBACTAM 3.375 G in DEXTROSE 5% WATER 50 ML IV SCH ×2 (10:20→22:54)
[2021-03-20] MEDS: LEVETIRACETAM 500MG PREMIX 100 ML IV SCH ×2 (10:21→20:59)
[2021-03-20] MEDS: ENOXAPARIN 40MG/0.4ML SYR SUBCUT SCH (16:14)
[2021-03-21] VITALS: BP 94/58
[2021-03-21 04:00] VITALS: BP 133/78
[2021-03-21] MEDS: HYDRALAZINE HCL 100MG TABLET PO SCH ×3 (05:44→22:00)
[2021-03-21 08:00] VITALS: BP 110/71
[2021-03-21] MEDS: LEVETIRACETAM 500MG PREMIX 100 ML IV SCH ×2 (08:13→21:51)
[2021-03-21] MEDS: FAMOTIDINE 20MG TABLET PO SCH (08:14)
[2021-03-21] MEDS: NIFEDIPINE XL 30MG TAB PO SCH (08:14)
[2021-03-21 08:19] LABS: HEMATOCRIT. 31.3 % (42.0-52.0); HEMOGLOBIN. 10.6 g/dL (14.0-18.0); MEAN CORPUSCULAR HEMOGLOBIN 30.9 pg (28.0-32.0); MEAN CORPUSCULAR VOLUME 91.5 fL (80.0-94.0); MEAN PLATELET VOLUME 7.6 fl (7.4-10.4); PLATELET 195 x1000/uL (130-400); RED BLOOD CELL COUNT 3.42 mill/uL (4.7-6.1); RED CELL DISTRIBUTION WIDTH 14.2 % (11.6-14.6)
[2021-03-21] MEDS: PIPERACILLIN/TAZOBACTAM 3.375 G in DEXTROSE 5% WATER 50 ML IV SCH ×2 (09:11→21:54)
[2021-03-21 12:00] VITALS: BP 116/74
[2021-03-21 16:00] VITALS: BP 130/82
[2021-03-21] MEDS: ENOXAPARIN 40MG/0.4ML SYR SUBCUT SCH (17:00)
[2021-03-21 20:00] VITALS: BP 139/93
[2021-03-22] VITALS: BP 144/88
[2021-03-22 03:59] LABS: PLATELET ESTIMATE NORMAL
[2021-03-22 04:00] VITALS: BP 130/78
[2021-03-22] MEDS: HYDRALAZINE HCL 100MG TABLET PO SCH ×3 (06:00→21:09)
[2021-03-22 07:01] LABS: HEMATOCRIT. 32.3 % (42.0-52.0); HEMOGLOBIN. 10.8 g/dL (14.0-18.0); MEAN CORPUSCULAR HEMOGLOBIN 30.4 pg (28.0-32.0); MEAN CORPUSCULAR VOLUME 90.8 fL (80.0-94.0); MEAN PLATELET VOLUME 7.3 fl (7.4-10.4); PLATELET 210 x1000/uL (130-400); RED BLOOD CELL COUNT 3.56 mill/uL (4.7-6.1); RED CELL DISTRIBUTION WIDTH 14.1 % (11.6-14.6)
[2021-03-22 08:00] VITALS: BP 129/72
[2021-03-22] MEDS: LEVETIRACETAM 500MG PREMIX 100 ML IV SCH ×2 (09:53→21:08)
[2021-03-22] MEDS: PIPERACILLIN/TAZOBACTAM 3.375 G in DEXTROSE 5% WATER 50 ML IV SCH ×2 (09:54→21:08)
[2021-03-22] MEDS: NIFEDIPINE XL 30MG TAB PO SCH (09:56)
[2021-03-22] MEDS: FAMOTIDINE 20MG TABLET PO SCH (09:57)
[2021-03-22 10:59] LABS: PLATELET ESTIMATE NORMAL
[2021-03-22 12:00] VITALS: BP 134/82
[2021-03-22 16:00] VITALS: BP 130/79
[2021-03-22] MEDS: ENOXAPARIN 40MG/0.4ML SYR SUBCUT SCH (17:52)
[2021-03-22 20:00] VITALS: BP 122/79
[2021-03-23] VITALS: BP 102/69
[2021-03-23 04:00] VITALS: BP 108/69
[2021-03-23] MEDS: HYDRALAZINE HCL 100MG TABLET PO SCH ×4 (05:26→22:00)
[2021-03-23 08:00] VITALS: BP 108/72
[2021-03-23] MEDS: NIFEDIPINE XL 30MG TAB PO SCH (09:00)
[2021-03-23] MEDS: FAMOTIDINE 20MG TABLET PO SCH (10:01)
[2021-03-23] MEDS: PIPERACILLIN/TAZOBACTAM 3.375 G in DEXTROSE 5% WATER 50 ML IV SCH (10:01)
[2021-03-23] MEDS: LEVETIRACETAM 500MG PREMIX 100 ML IV SCH ×2 (10:03→21:06)
[2021-03-23 10:35] LABS: HEMATOCRIT. 32.9 % (42.0-52.0); MEAN CORPUSCULAR HEMOGLOBIN 30.7 pg (28.0-32.0); MEAN PLATELET VOLUME 7.5 fl (7.4-10.4); PLATELET 208 x1000/uL (130-400); RED BLOOD CELL COUNT 3.58 mill/uL (4.7-6.1); RED CELL DISTRIBUTION WIDTH 13.8 % (11.6-14.6)
[2021-03-23 12:00] VITALS: BP 129/76
[2021-03-23 12:43] LABS: PLATELET ESTIMATE NORMAL
[2021-03-23 16:00] VITALS: BP 109/74
[2021-03-23] MEDS: ENOXAPARIN 40MG/0.4ML SYR SUBCUT SCH (17:05)
[2021-03-23 20:00] VITALS: BP 122/70
[2021-03-24] VITALS: BP 119/76
[2021-03-24 04:00] VITALS: BP 119/81
[2021-03-24] MEDS: HYDRALAZINE HCL 100MG TABLET PO SCH (06:00)
[2021-03-24] MEDS ORDERED: LIDOCAINE HCL 1% 10 MG/ML 10ML VIAL ONE (07:38)
[2021-03-24 08:00] VITALS: BP 116/74
[2021-03-24] MEDS: FAMOTIDINE 20MG TABLET PO SCH (08:25)
[2021-03-24] MEDS: LEVETIRACETAM 500MG PREMIX 100 ML IV SCH (08:25)
[2021-03-24] MEDS: NIFEDIPINE XL 30MG TAB PO SCH ×2 (08:26→09:00)
[2021-03-24 12:00] VITALS: BP 142/81
[2021-03-24 16:00] VITALS: BP 109/77
[2021-03-24 16:55] VITALS: BP 109/77
== END 2021-03-24 17:37 | DRG 54 ==
LOC: ER 18:00 → EDBEDREQ 23:12 → EDBEDREQTM 23:12 → ENRESERV 23:18 → 5EST 03-12 02:18 → 7EST 03-15 22:29 → CVICU 03-18 07:20 → 7EST 03-20 08:44
PROVIDERS: ADMIT Internal Medicine; ATTEND Internal Medicine
PROC: 0J2VXYZ Change Other Device in Upper Extremity Subcutaneous Tissue and Fascia, External Approach (ICD-10-PCS; principal; 2021-03-12)
PROC: B31N1ZZ Fluoroscopy of Other Upper Arteries using Low Osmolar Contrast (ICD-10-PCS; 2021-03-12)
PROC: 02HV33Z Insertion of Infusion Device into Superior Vena Cava, Percutaneous Approach (ICD-10-PCS; 2021-03-18)
PROC: B548ZZA Ultrasonography of Superior Vena Cava, Guidance (ICD-10-PCS; 2021-03-18)
PROC: 5A1935Z Respiratory Ventilation, Less than 24 Consecutive Hours (ICD-10-PCS; 2021-03-19)
PROC: 0BH17EZ Insertion of Endotracheal Airway into Trachea, Via Natural or Artificial Opening (ICD-10-PCS; 2021-03-19)
PROC: 5A09357 Assistance with Respiratory Ventilation, Less than 24 Consecutive Hours, Continuous Positive Airway Pressure (ICD-10-PCS; 2021-03-22)
PROC: 5A1D70Z Performance of Urinary Filtration, Intermittent, Less than 6 Hours Per Day (ICD-10-PCS; 2021-03-22)
PROC: 5A1D70Z Performance of Urinary Filtration, Intermittent, Less than 6 Hours Per Day (ICD-10-PCS; 2021-03-22)
PROC: 5A1D70Z Performance of Urinary Filtration, Intermittent, Less than 6 Hours Per Day (ICD-10-PCS; 2021-03-22)
PROC: 5A1D70Z Performance of Urinary Filtration, Intermittent, Less than 6 Hours Per Day (ICD-10-PCS; 2021-03-22)
PROC: 5A1D70Z Performance of Urinary Filtration, Intermittent, Less than 6 Hours Per Day (ICD-10-PCS; 2021-03-22)
PROC: 5A1D70Z Performance of Urinary Filtration, Intermittent, Less than 6 Hours Per Day (ICD-10-PCS; 2021-03-22)
PROC: 0JPV3XZ Removal of Tunneled Vascular Access Device from Upper Extremity Subcutaneous Tissue and Fascia, Percutaneous Approach (ICD-10-PCS; 2021-03-24)
DX: C79.31 Secondary malignant neoplasm of brain (principal); N18.6 End stage renal disease; G93.6 Cerebral edema; G93.49 Other encephalopathy; I12.0 Hypertensive chronic kidney disease with stage 5 chronic kidney disease or end stage renal disease; E87.1 Hypo-osmolality and hyponatremia; E87.0 Hyperosmolality and hypernatremia; E86.0 Dehydration; E87.5 Hyperkalemia; D64.9 Anemia, unspecified; E66.01 Morbid (severe) obesity due to excess calories; E11.22 Type 2 diabetes mellitus with diabetic chronic kidney disease; E87.8 Other disorders of electrolyte and fluid balance, not elsewhere classified; G40.909 Epilepsy, unspecified, not intractable, without status epilepticus; E78.5 Hyperlipidemia, unspecified; Z20.822 Contact with and (suspected) exposure to COVID-19; G93.0 Cerebral cysts; F32.A Depression, unspecified; G89.4 Chronic pain syndrome; Z66 Do not resuscitate; M19.90 Unspecified osteoarthritis, unspecified site; D72.829 Elevated white blood cell count, unspecified; N40.0 Benign prostatic hyperplasia without lower urinary tract symptoms; Z85.841 Personal history of malignant neoplasm of brain; Z91.19 Patient's noncompliance with other medical treatment and regimen; Z92.3 Personal history of irradiation; Z99.2 Dependence on renal dialysis; Z51.5 Encounter for palliative care; Z79.899 Other long term (current) drug therapy; Z86.73 Personal history of transient ischemic attack (TIA), and cerebral infarction without residual deficits; Z68.31 Body mass index [BMI] 31.0-31.9, adult
CPT/HCPCS: 36415; 36558; 36589; 36600; 70551; 71045; 76937; 77001; 80048; 80053; 80320; 82140; 82375; 82550; 82553; 82805; 82962; 83735; 83880; 83970; 84100; 84145; 84484; 85025; 86705; 86709; 86803; 87340; 87426; 92610; 93005; 93970; 94644; 95816; 97162; 99291; C1725; C1750; C1769; C9113; J0360; J0696; J1100; J1644; J1650; J1953; J2060; J2270; J2543; J3010; J3370; J3490; J7042; J7060; G0480